=== PATIENT | female | born 1945 | race Caucasian/White ===

== ENCOUNTER → 2016-05-11 | Outpatient (CLI) | payer OTHER ==
--- NOTE | 2016-05-11 20:37 | DX ---
DEXA Bone Mineral Densitometry Clinical Indications: Postmenopausal, post hysterectomy, loss of height, follow-up osteoporosis Comparison: November 21, 2010 (osteoporosis in the forearm) Technique: Bone Mineral Densitometry (BMD) by Dual Energy X-Ray Absorptiometry (DEXA) was performed utilizing the Emergent Properties scanner. The lumbar spine was evaluated in the AP projection. The bilat eral hips and forearm were evaluated in the AP projection. Vertebral fracture assessment was also pe rformed. AP Lumbar Spine: The L1, L2, L3 and L4 vertebral bodies were evaluated. BMD: 1.017 gm/cm2 T-score: -1.4 SD Z-score: 0 SD No significant change. AP Left Hip: Total BMD: 0.768 gm/cm2 T-score: -1.9 SD Z-score: -0.6 SD No significant change since 2010. AP Right Hip: Total BMD: 0.732 gm/cm2 T-score: -2.2 SD Z-score: -0.8 SD No significant change since 2010 AP Left Forearm, 04/07: BMD: 0.555 gm/cm2 T-score: -3.7 SD Z-score: -1.7 SD No significant change since 2010 Vertebral Fracture Assessment: No significant fracture deformity. Degenerative spurring in the lumba r spine likely increases BMD. Conclusion: Considering the lowest measured site, the patient remains osteoporotic in the forearm. S adam the forearm is the lowest measured site, it would be worthwhile to exclude hyperparathyroidism. The ten year FRAX risk for any major osteoporotic fracture , which excludes the risk for a wrist frac ture, is 11.5% and for a hip fracture is 2.2%. To prevent osteoporosis and to promote the patient's bone density, the following recommendations shou ld be considered: 1. Pursue a regular regimen of weightbearing and muscle strengthening exercises in order to reduce t he risk of falls and fractures (as tolerated by the patient's general medical condition). 2. Ensure that daily dietary calcium uptake is maximized. 3. Consider checking the serum vitamin D level. Ensure that intake of vitamin D is 800 IU per day (f or ages 71 and older). 4. Consider follow-up DEXA scan in 3-4 years to reassess the rate of bone loss in this patient.
== END ==
LOC: FIMAGING 10:31
PROVIDERS: ATTEND Internal Medicine
DX: Z13.820 Encounter for screening for osteoporosis (principal); M81.0 Age-related osteoporosis without current pathological fracture; R29.890 Loss of height; Z90.710 Acquired absence of both cervix and uterus; Z78.0 Asymptomatic menopausal state

== ENCOUNTER 2016-09-17 08:50 | Inpatient (IN) | payer OTHER ==
--- NOTE | 2016-09-17 09:07 | EDPHY ---
H & P Source: Patient, Family, RN/MD Exam Limitations: No limitations HPI/ROS: CHIEF COMPLAINT: Fall, left hip HISTORY OF PRESENT ILLNESS: Patient was exercises this morning when she fell off of an exercise ball, landing on her left hip. This was on a hard surface at a gym. She felt a sudden onset of pain in the left hip. It was more severe when she attempted to move or get up. Too painful for her to ambulate or bear weight. Radiates into the thigh. No numbness or tingling. No pain in the distal extremity. No head or neck injury. No loss of conscious. No chest or back pain. No abdominal pain. Mild at rest. No other associated complaints or modifying factors. Last intake by mouth of solids was last night at 8:00 p.m.. She did drink some water at 8:00 a.m. this morning. No medical history. Only medication is Naprosyn for occasional low back pain. REVIEW OF SYSTEMS: Ten systems reviewed and are negative unless otherwise noted in the HPI PERTINENT MEDICAL HISTORY: Denies any significant medical history. SOCIAL HISTORY: Nonsmoker. Exercise irregular. EXAMINATION General Appearance: Alert, no distress Head: normocephalic, atraumatic Eyes: Pupils equal and round, no conjunctival pallor or injection ENT, Mouth: Mucous membranes moist Neck: Normal inspection, supple, non-tender Respiratory: Lungs are clear to auscultation. No wheezing, rhonchi or crackles. Cardiovascular: Regular rate and rhythm. No murmur. Pulses intact distally with symmetric DP and PT pulses at 2+. Gastrointestinal: Abdomen is soft and nontender Back: non-tender, no bony abnormalities Neurological: GCS 15. A&O, nonfocal. Strength is symmetric in both limbs and 5 /5 in her lower extremity. Difficult to test strength in the left lower extremity due to pain. Skin: Warm and dry, no rash Extremities: Left lower extremity is externally rotated. Unable to range the left hip due to pain. The left ankle range of motion is normal. Neurovascular intact distal to the left hip pain. Range of motion of both arms and the right leg fully intact. Psychiatric: Mood and affect normal DIFFERENTIAL DIAGNOSES: Including but not limited to intertrochanteric hip fracture, subcapital fracture , pelvic fracture, initial fracture,Femur fracture, contusion, hematoma MDM: 9:10 a.m. Mechanical fall with left hip pain. Patient is very well-appearing. She does have shortening external rotation of the left lower extremity. Too painful for her range the hip. Suspected this is a hip fracture. I have ordered preoperative labs and chest x-ray in preparation for this. She is in no acute distress with normal vital signs. 9:40 a.m. X-ray reveals subcapital fracture by my interpretation. I have paged orthopedics for consultation 9:55 a.m. I discussed the case with the on-call orthopedist Dr. Ty. I informed him of the patient's case and x-ray findings. He requested that the patient be admitted to the hospitalist. He also requested CBC, coagulation study, chest x- ray and EKG. He requested the hospitalist provide medical clearance to proceed with surgery and that she be kept NPO. No further recommendations or request. 10:10 a.m. I discussed the case with the hospitalist Dr. Mcbride. She has admitted the patient to Dr. Fontana. She is admitted in stable condition. She remains NPO for preoperative sooner SUPERVISION: Patient was evaluated in conjunction with the supervising physician. Please see their note for details. (Tom Willard) Constitutional: Initial Vital Signs Temperature (C) 36.6 C 09/17/16 09:08 Heart Rate 67 09/17/16 09:08 Respiratory Rate 18 09/17/16 09:08 Blood Pressure 146/86 H 09/17/16 09:08 O2 Sat (%) 98 09/17/16 09:08 O2 Delivery Mode Room Air Allergies/Adverse Reactions: clindamycin Allergy (Verified 09/17/16 09:20) nitrofurantoin [From Macrobid] Allergy (Verified 09/17/16 09:20) Medical Decision Making - Diagnostics Imaging Results: Imaging Impressions Chest X-Ray 09/17/16 09:03 Impression: 1. Clear lungs. No acute process. 2. Borderline enlarged heart. No failure or edema. Hip X-Ray 09/17/16 09:03 Impression: Acute angulated left femoral neck fracture. Other Provider: INDEPENDENT PHYSICIAN DOCUMENTATION I evaluated and participated in the management of the patient. I also evaluated the patient independently. My co-signature indicates that I have reviewed this chart and I agree with the findings and plan of care as documented. My personal H&P findings include: The patient presents to emergency department after a fall during exercise class. The patient presents to the ED without obvious pain, deformity and external rotation of her left hip. The patient was noted to be neurologically intact. The patient was taken for an x-ray which demonstrates a femoral neck fracture. Consultation was made with Dr. Domenico Ty from Orthopedic surgery. The patient will be admitted to the hospital in anticipation of ORIF this afternoon. The patient will be admitted to the hospital primarily by Dr. Amirah Fontana. (Rubén Villalobos) - Data Points Laboratory Results: Laboratory Results 09/17/16 09:06 09/17/16 09:06 09/17/16 09/17/16 09/17/16 09:06 09:06 09:06 WBC 4.52 10^3/uL 10^3/uL (3.80-9.50) RBC 5.00 10^6/uL 10^6/uL (4.18-5.33) Hgb 15.1 g/dL g/dL (12.6-16.3) Hct 43.6 % % (38.0-47.0) MCV 87.2 fL fL (81.5-99.8) MCH 30.2 pg pg (27.9-34.1) MCHC 34.6 g/dL g/dL (32.4-36.7) RDW 12.5 % % (11.5-15.2) Plt Count 190 10^3/uL 10^3/uL (150-400) PT 12.5 SEC SEC (12.0-15.0) INR 0.94 (0.83-1.16) APTT 32.0 SEC SEC (23.0-38.0) Sodium 135 mEq/L mEq/L (134-144) Potassium 4.4 mEq/L mEq/L (3.5-5.2) Chloride 103 mEq/L mEq/L (97-110) Carbon Dioxide 23 mEq/l mEq/l (22-31) Anion Gap 9 mEq/L mEq/L (8-16) BUN 14 mg/dL mg/dL (7-23) Creatinine 0.8 mg/dL mg/dL (0.6-1.0) Estimated GFR > 60 Glucose 87 mg/dL mg/dL (70-100) Calcium 9.7 mg/dL mg/dL (8.5-10.4) Medications Given: Discontinued Medications Hydromorphone HCl (Dilaudid) 0.5 mg IVP EDNOW ONE Stop: 09/17/16 10:13 Last Admin: 09/17/16 10:17 Dose: 0.5 mg Morphine Sulfate (Morphine) 4 mg IVP EDNOW ONE Stop: 09/17/16 09:01 Last Admin: 09/17/16 09:00 Dose: 4 mg Morphine Sulfate (Morphine) 2 mg IVP EDNOW ONE Stop: 09/17/16 09:36 Last Admin: 09/17/16 09:35 Dose: 2 mg Departure - Departure Disposition: [facility] Inpatient Acute Clinical Impression: Femoral neck fracture Qualifiers: Encounter type: initial encounter Fracture type: closed Laterality: left Qualified Code(s): S72.002A - Fracture of unspecified part of neck of left femur , initial encounter for closed fracture Condition: Good Instructions: Hip Fracture (ED) Referrals: Patient,NotPresent [Unknown] - As per Instructions
[2016-09-17 09:12] LABS: HEMATOCRIT 43.6 % (38.0-47.0); HEMOGLOBIN 15.1 g/dL (12.6-16.3); MEAN CELL HEMOGLOBIN 30.2 pg (27.9-34.1); MEAN CELL HEMOGLOBIN CONCENTR. 34.6 g/dL (32.4-36.7); MEAN CELL VOLUME 87.2 fL (81.5-99.8); RED CELL DISTRIBUTION WIDTH 12.5 % (11.5-15.2)
[2016-09-17 09:26] LABS: INR 0.94 (0.83-1.16); PROTIME(PATIENT) 12.5 SEC (12.0-15.0)
[2016-09-17 09:41] LABS: ANION GAP 9 mEq/L (8-16); CALCIUM 9.7 mg/dL (8.5-10.4); CARBON DIOXIDE 23 mEq/l (22-31); CHLORIDE 103 mEq/L (97-110); CREATININE 0.8 mg/dL (0.6-1.0); GLOMERULAR FILTRATION RATE > 60; GLUCOSE 87 mg/dL (70-100); POTASSIUM 4.4 mEq/L (3.5-5.2); SODIUM 135 mEq/L (134-144)
[2016-09-17] MEDS ORDERED: HYDROmorphONE/DILAUDID 1 MG/ML SYR ONE (10:12)
[2016-09-17] MEDS ORDERED: HYDROmorphONE/DILAUDID 1 MG/ML SYR IVP ONE (10:12)
--- NOTE | 2016-09-17 10:39 | CPEKG ---
Heart Rate: 62 RR Interval: 968 P-R Interval: 168 QRSD Interval: 84 QT Interval: 460 QTC Interval: 468 P [place]: 8 QRS [place]: 40 T Wave [place]: 40 EKG Severity - ABNORMAL ECG - EKG Impression: SINUS RHYTHM Electronically Signed By: Rubén Villalobos 17-Sep-2016 10:55:05
[2016-09-17] MEDS ORDERED: ONDANSETRON 4 MG/2 ML VIAL IVP PRN (11:37)
[2016-09-17] MEDS ORDERED: ONDANSETRON DISINTEGRATING 4 MG TAB PO PRN (11:37)
[2016-09-17] MEDS: NS W/ 20 KCl/L 1,000 ML IV SCH (12:20)
[2016-09-17] MEDS: HYDROmorphONE/DILAUDID 1 MG/ML SYR IVP PRN ×2 (12:20→22:08)
--- NOTE | 2016-09-17 12:23 | GHP ---
[f rep st] HISTORY AND PHYSICAL DATE OF ADMISSION: 09/17/2016 CHIEF COMPLAINT: Fall. HISTORY OF PRESENT ILLNESS: This is a 70-year-old female with no real past medical history. She do es have a history of osteopenia/osteoporosis though. She was on an exercise ball in exercise class and someone bumped into her and she fell on her left hip with a fracture. She really has no medical problems other than osteopenia/osteoporosis. She does have a history of asymptomatic gallstones. She denies any chest pain or angina. No shortness of breath. She is able to walk up a couple fligh ts of stairs with no problems. She is actually quite active. REVIEW OF SYSTEMS: A 10-point review of systems was obtained and was negative. PAST MEDICAL HISTORY: Osteoporosis. MEDICATIONS: Vitamins. SOCIAL HISTORY: No smoking or alcohol. Lives with her . FAMILY HISTORY: Mother had breast cancer. Father had coronary artery disease. PHYSICAL EXAM: VITAL SIGNS: Afebrile. Blood pressure is 126/68, heart rate 61, oxygen saturation 99% on room air. GENERAL: The patient is well-developed, no apparent distress. HEENT: Nonicteric sclerae. Extraocular movements intact. Moist mucous membranes. NECK: Supple. No thyromegaly. LUNGS: Good effort. Clear to auscultation bilaterally. CARDIOVASCULAR: Regular rate and rhythm. No murmurs, rubs or gallops. ABDOMEN: Positive bowel sounds. Soft, nontender, nondistended. No hepatosplenomegaly. EXTREMITIES: No clubbing, cyanosis or edema. Left leg is externally rotated a nd shortened. NEUROLOGIC: Alert and oriented x3. PSYCHIATRIC: Normal affect. LABS: CBC and chemistry are normal. EKG, personally reviewed and interpreted, is essentially normal. Although there are very small Q-wa ves inferiorly, I do not believe that these are significant. Chest x-ray, personally reviewed and interpreted, is normal. ASSESSMENT: 1. This is a 70-year-old female presenting with left hip fracture. Plan: Patient is at acceptable risk for surgery and needs no further cardiac risk stratification. There are no contraindications to surgery. 2. Osteoporosis. Looking back at her labs, it does look like her vitamin D is normal. PTH is at t he upper limit of normal, and bone scanning was possibly suggestive of hyperparathyroidism. We will defer further evaluation to her primary care doctor. /[id number]/MODL
[2016-09-17] MEDS: oxyCODONE IR 5 MG TAB PO PRN ×4 (14:31→22:09)
--- NOTE | 2016-09-17 17:39 | SOAPPROG ---
SOAP Progress Note Assessment/Plan: Assessment: 70yo healthy F with prior hi-activity level and mild OA sx remotely in the past, now with displaced L fem neck fx. Plan: Bedrest, NPO p MN, analgesics prn, pre-op labs. Med admit and clearance for surgery. Anticipate OR tomorrow with my partner, Jeff Mcrae MD, for RAMA. See consent and pre-op ortho consult per Dr Mcrae's notes. 09/17/16 17:39 Subjective: L hip pain s/p fall, unable to bear wt. Pre-injury status c/w hi-level, hiking , community ambulator, ex classes. Remote L hip occasional pain, previously under care of Dr Gusman who provided a steroid injxn 10+ years ago, resolving her pain. Denies any other injuries or complaints. Objective: Vital Signs Temp Pulse Resp BP Pulse Ox 36.4 C 77 16 120/56 L 92 09/17/16 16:55 09/17/16 16:55 09/17/16 16:55 09/17/16 16:55 09/17/16 16:55 09/16/16 09/17/16 09/18/16 05:59 05:59 05:59 Intake Total 387 Balance 387 PT 12.5 SEC (12.0-15.0) 09/17/16 09:06 INR 0.94 (0.83-1.16) 09/17/16 09:06 L hip TTP, no sig ER or shortening at this time. ROM def'd 2/2 pain. DNVI BLE' s w/o deficit. No calf TTP/edema, neg Rosanne's. XR - L transcervical femoral neck fracture with displacement. Mild sub- chondral sclerosis, preserved joint space. ICD10 Worksheet Patient Problems: Problems Problem Status Onset Femoral neck fracture Acute
--- NOTE | 2016-09-17 17:43 | GCON ---
[f rep st] CONSULTATION DATE OF CONSULTATION: 09/17/2016 ADDITIONAL DICTATED FOR: Dr. Mcrae. CHIEF COMPLAINT: Left hip pain. HISTORY OF PRESENT ILLNESS: The patient is a 70-year-old female who was brought to the emergency department complaining of left hip pain. Patient states she was in an exercise class, using an exercise ball, when another person in the class lost her balance, bumping into the patient and she ended up falling onto the left side. She states she had immediate pain in the left hip and was unable to get up or bear weight on the left lower extremity. Her pain is well-controlled now after IV Dilaudid. Patient denies any numbness or tingling. Prior to this injury she walked without any significant limitations, and was active with hiking and exercise classes. She had distant L hip pain that was treated with a steroid injection by Dr Gsuman 10+ years ago, resolving her pain. PAST MEDICAL HISTORY: Osteoporosis. PAST SURGICAL HISTORY: Hysterectomy, tonsillectomy, and adenoidectomy, and right breast lumpectomy x2. MEDICATIONS: Patient states she takes daily vitamins and Naprosyn as needed. ALLERGIES TO MEDICATIONS: Macrobid, clindamycin, lanolin and bacitracin. SOCIAL HISTORY: The patient is very active with hiking and exercising. She lives independently with her . REVIEW OF SYSTEMS: No other complaints after a 10-point review. PHYSICAL EXAMINATION: GENERAL: Patient is a healthy, well-appearing female. She is alert, active, in no acute distress. HEENT: Head is normocephalic, atraumatic. Nose, ears, and mouth appear normal. Eye motion is intact. NECK: Normal in appearance with midline trachea. LUNGS: Chest motion appears normal. Respirations are nonlabored. MUSCULOSKELETAL: Skin is intact over the left lower extremity without any ecchymosis, erythema, calor, or edema. She has slight tenderness to palpation on the anterolateral aspect of the left hip. Patient good range of motion of her ankles and toes bilaterally. 5/5 dorsiflexion and plantar flexion. Sensation is intact throughout. Palpable distal pulses with brisk capillary refill. Calves are soft and nontender with negative Homans. SKIN: Please see dictation above. Otherwise no other abrasions, erythema, or tattoos. NEUROLOGIC: Appears alert and oriented to person, place, and time. Speech is fluid and fluent. PSYCHIATRIC: Affect is normal. RADIOGRAPHIC DATA: X-rays from the emergency department are reviewed which show a displaced, transcervical left femoral neck fracture. Minimal OA change, including subchondral sclerosis, though joint space is preserved. ASSESSMENT AND PLAN: Displaced, closed left femoral neck fracture. Dr Ty discussed the patient's current activity and ambulatory status, and has explained that the best outcomes in regard to her fracture and functionality would be treatment with a total hip arthroplasty. Risks, benefits , and alternatives were discussed with the patient and her family. They agreed to proceed with surgery. Patient will remain on bedrest until surgery, position of comfort, NWB LLE. Surgery will likely be September 18, 2016. She will be n.p.o. after midnight tonight. Reg diet now. TEDs and SCDs. We will try p.o. pain management today while she can take things orally. Dr. Ty has provided the initial evaluation of the patient and the plan above. He has discussed with Dr. Mcrae, who will proceed with L total hip arthroplasty tomorrow. Patient understands and agrees to the treatment plan today and all of her questions have been answered. A consent form was completed with the patient today for a left total hip arthroplasty, PA supervision by Dr Mcrae for this surgery and consent form. /[id number]/MODL MTDD
[2016-09-18] MEDS: oxyCODONE IR 5 MG TAB PO PRN ×2 (04:13→07:50)
[2016-09-18] MEDS: NS W/ 20 KCl/L 1,000 ML IV SCH (04:16)
[2016-09-18] MEDS: ACETAMINOPHEN 325 MG TAB PO PRN (08:00)
[2016-09-18] MEDS: METHOCARBAMOL 750 MG TAB PO PRN ×3 (08:17→10:44)
[2016-09-18] MEDS ORDERED: ceFAZolin 2 GM/DEXTROSE 100 ML IV ONE (09:04)
--- NOTE | 2016-09-18 09:04 | SOAPPROG ---
SOAP Progress Note Assessment/Plan: Assessment/Plan: L femoral neck fracture - Plan for OR this afternoon for L RAMA with Dr. Mcrae - Continue pain management - Antibiotics on hold for the OR - Bed rest, position for comfort - Remain NPO 09/18/16 09:01 Subjective: Pt states she is doing okay. She slept well last night, but getting uncomfortable from not being able to get out of bed. Pt denies fever, chills, chest pain, SOB, abdominal pain, N/V/D, numbness, tingling, and calf pain. Objective: Vital Signs Temp Pulse Resp BP Pulse Ox 36.7 C 72 16 108/62 94 09/18/16 08:12 09/18/16 08:12 09/18/16 08:12 09/18/16 08:12 09/18/16 08:12 09/17/16 09/18/16 09/19/16 05:59 05:59 05:59 Intake Total 1483 Balance 1483 PT 12.5 SEC (12.0-15.0) 09/17/16 09:06 INR 0.94 (0.83-1.16) 09/17/16 09:06 Physical Exam - Physical Exam General Appearance: alert, mild distress Cardiac/Chest: normal peripheral pulses Skin: normal color, warm/dry Extremities: normal capillary refill, No pedal edema, No calf tenderness, No swelling, No Rosanne's sign Neuro/Psych: no motor/sensory deficits, alert, normal mood/affect, oriented x 3 ICD10 Worksheet Patient Problems: Problems Problem Status Onset Femoral neck fracture Acute
[2016-09-18] MEDS: HYDROmorphONE/DILAUDID 1 MG/ML SYR IVP PRN ×2 (10:33→12:53)
[2016-09-18] MEDS ORDERED: LACTULOSE 20 GM/30 ML UDCUP PO PRN (13:17)
[2016-09-18] MEDS ORDERED: BISACODYL 10 MG SUPP PR PRN (13:17)
[2016-09-18] MEDS ORDERED: MAGNESIUM HYDROXIDE 30 ML UDCUP PO PRN (13:17)
[2016-09-18] MEDS ORDERED: BUPIVACAINE/EPI 0.5% 30 ML SDV ONE ×2 (13:33→14:21)
[2016-09-18] MEDS ORDERED: POLYMYXIN B SULFATE 500,000 UNIT/10 ML SYR IRR ONE ×2 (13:33→14:22)
[2016-09-18] MEDS ORDERED: BACITRACIN 50,000 UNITS/10 ML SYR IRR ONE (14:22)
[2016-09-18] MEDS ORDERED: PROPOFOL 200 MG/20 ML VIAL ONE (14:55)
[2016-09-18] MEDS ORDERED: fentaNYL 100 MCG/2 ML INJ ONE ×2 (14:55→19:12)
[2016-09-18] MEDS ORDERED: CEFAZOLIN 2 GM/DEXTROSE/100 ML BAG IV ONE (14:58)
[2016-09-18] MEDS ORDERED: ceFAZolin 1 GM/5 ML SYR ONE (15:02)
[2016-09-18] MEDS ORDERED: LR 1,000 ML IV ONE (15:05)
[2016-09-18] MEDS ORDERED: LIDOCAINE 2% 5 ML SDV ONE (15:05)
[2016-09-18] MEDS ORDERED: ROCURONIUM 50 MG/5 ML VIAL ONE (15:05)
[2016-09-18] MEDS ORDERED: MIDAZOLAM 2 MG/2 ML VIAL IVP ONE (15:09)
[2016-09-18] MEDS ORDERED: DEXAMETHASONE 4 MG/ML VIAL ONE (15:09)
--- NOTE | 2016-09-18 15:25 | PDANEPAE ---
ANE History of Present Illness 70yo F Left Hip Endoprosthesis ANE Past Medical History - Cardiovascular History Hx Hypertension: No Hx Arrhythmias: No Hx Chest Pain: No - Pulmonary History Hx COPD: No Hx Asthma/Reactive Airway Disease: No Hx Recent Upper Respiratory Infection: No Hx Oxygen in Use at Home: No - Endocrine History Hx Diabetes: No - Chronic Pain History Chronic Pain: No ANE Review of Systems - Exercise capacity Exercise capacity: limited by disability - Systems Constitutional: Reports: no symptoms EENMT: Reports: no symptoms Cardiac: Reports: no symptoms Respiratory: Reports: no symptoms Gastrointestinal: Reports: no symptoms Muscolosketal: Reports: joint pain ANE Patient History - Allergies Allergies/Adverse Reactions: bacitracin Allergy (Verified 09/17/16 14:09) clindamycin Allergy (Verified 09/17/16 09:20) lanolin Allergy (Verified 09/17/16 14:10) nitrofurantoin [From Macrobid] Allergy (Verified 09/17/16 09:20) - Home Medications Home Medications: Herbals/Supplements -Info Only 1 ea PO DAILY 09/17/16 [Last Taken Unknown] Ibuprofen [Motrin (*)] 200 - 400 mg PO DAILY PRN 09/17/16 [Last Taken Unknown] Loratadine [Claritin] 10 mg PO DAILY PRN 09/17/16 [Last Taken Unknown] Naproxen Sodium [Naproxen Sodium Cr] 375 mg PO BID PRN 09/17/16 [Last Taken 1 Week Ago] - NPO status NPO Since - Liquids (Date): 09/18/16 NPO Since - Liquids (Time): 06:00 NPO Since - Solids (Date): 09/17/16 NPO Since - Solids (Time): 23:00 - Smoking Hx Smoking Status: Former smoker ANE Labs/Vital Signs - Labs Result Diagrams: 09/17/16 09:06 09/17/16 09:06 - Vital Signs Blood Pressure: 106/61 Heart Rate: 70 Respiratory Rate: 16 O2 Sat (%): 97 Height: 165.1 cm Weight: 72.575 kg ANE Physical Exam - Airway Mallampati Score: Class 2 Mouth exam: normal dental/mouth exam - Pulmonary Pulmonary: no respiratory distress, clear to auscultation - Cardiovascular Cardiovascular: regular rate and rhythym - ASA Status ASA Status: II ANE Anesthesia Plan Anesthesia Plan: general endotracheal anesthesia
[2016-09-18] MEDS ORDERED: NALOXONE HCL 0.4 MG/ML INJ IVP PRN (15:26)
[2016-09-18] MEDS ORDERED: LR 500 ML IV PRN (15:26)
[2016-09-18] MEDS ORDERED: OXYCODONE/APAP 5/325 TAB PO PRN (15:26)
[2016-09-18] MEDS ORDERED: ALBUTEROL 3 ML DEYVIAL IH PRN (15:26)
[2016-09-18] MEDS ORDERED: HYDROCODONE/APAP 5/325 TAB PO PRN (15:26)
[2016-09-18] MEDS ORDERED: HYDROmorphONE/DILAUDID 1 MG/ML SYR IVP PRN (15:26)
[2016-09-18] MEDS ORDERED: fentaNYL 100 MCG/2 ML INJ IVP PRN (15:30)
--- NOTE | 2016-09-18 15:33 | HOSPPROG ---
Hospitalist Progress Note Assessment/Plan: Patient is doing well. Is complaining of some low back pain but otherwise no new complaints. Patient is able to go to surgery without any further testing. I discussed the case with Orthopedic surgery and they will take over care since she does not have any medical problems Objective: Vital Signs Temp Pulse Resp BP Pulse Ox 36.9 C 70 16 106/61 97 09/18/16 14:51 09/18/16 15:26 09/18/16 15:26 09/18/16 15:26 09/18/16 15:26 09/17/16 09/18/16 09/19/16 05:59 05:59 05:59 Intake Total 1483 Output Total 3500 Balance 1483 -3500 PT 12.5 SEC (12.0-15.0) 09/17/16 09:06 INR 0.94 (0.83-1.16) 09/17/16 09:06 ICD10 Worksheet Patient Problems: Problems Problem Status Onset Femoral neck fracture Acute
[2016-09-18] MEDS ORDERED: EPINEPHRINE IU ONE (15:49)
[2016-09-18] MEDS ORDERED: KETOROLAC TROMETHAMINE IU ONE (15:49)
[2016-09-18] MEDS ORDERED: ROPIVACAINE IU ONE (15:49)
[2016-09-18] MEDS ORDERED: [UNRECOGNIZED DRUG - OTHER] IU ONE (15:49)
[2016-09-18] MEDS ORDERED: HYDROmorphONE/DILAUDID 2 MG/ML INJ ONE (17:11)
[2016-09-18] MEDS ORDERED: ONDANSETRON 4 MG/2 ML VIAL ONE (17:59)
[2016-09-18] MEDS ORDERED: DIPHENOXYLATE/ATROPINE LOMOTIL 1 TAB PO PRN (18:55)
[2016-09-18] MEDS ORDERED: TEMAZEPAM 15 MG CAP PO PRN (18:55)
[2016-09-18] MEDS ORDERED: PROMETHAZINE HCL 25 MG/ML INJ IVP PRN (18:55)
[2016-09-18] MEDS ORDERED: PHARMACY PAIN CONSULT 1 EA MISC PRN (18:55)
[2016-09-18] MEDS ORDERED: diphenhydrAMINE 25 MG CAP PO PRN (18:55)
[2016-09-18] MEDS ORDERED: METOCLOPRAMIDE 10 MG/2 ML VIAL IVP PRN (18:55)
--- NOTE | 2016-09-18 18:58 | POSTANESTH ---
Post Anesthetic Evaluation Cardiovascular Status: Normal, Stable Respiratory Status: Normal, Stable Level of Consciousness/Mental Status: Can Participate in Eval Pain Control: Adequate, Prn Tx Ordered Nausea/Vomiting Control: Adequate, Prn Tx Ordered Complications Possibly Related to Anesthesia: None Noted
--- NOTE | 2016-09-18 19:09 | POSTOPPROG ---
Post Op Note Date of Operation: 09/18/16 Surgeon: Elio Mcrae Bearing Machine Operator: Sharee Jj PA-C Anesthesiologist: Dr. Gomes Anesthesia: GET(General Endotracheal) Pre-op Diagnosis: L femoral neck fracture Post-op Diagnosis: L femoral neck fracture Procedure: L RAMA Findings: See full dictation Inf/Abcess present in the surg proc area at time of surgery?: No Depth: Organ Space EBL: 100-500 Complications: None Drains: Ever Santos
[2016-09-18] MEDS ORDERED: WARFARIN SODIUM 5 MG TAB PO ONE (19:15)
[2016-09-18] MEDS: fentaNYL 100 MCG/2 ML INJ IVP PRN ×2 (19:17→19:25)
--- NOTE | 2016-09-18 19:27 | GOP ---
[f rep st] OPERATIVE REPORT DATE OF OPERATION: 09/17/2016 SURGEON: Elio Mcrae MD SORTING GRAPPLE OPERATOR: Sharee Jj PA-C ANESTHESIA: General. PREOPERATIVE DIAGNOSIS: 1. Left femoral neck fracture. 2. Osteoarthritis. POSTOPERATIVE DIAGNOSIS: 1. Left femoral neck fracture. 2. Osteoarthritis. 3. Gluteus dannielle tendon avulsion of the greater trochanter. PROCEDURE PERFORMED: FINDINGS: DESCRIPTION OF PROCEDURE: The patient was taken to the operating room, administered general anesthe luther, placed in the supine position. The left hip and lower extremity were prepped and draped in nor mal sterile fashion. A posterolateral incision was made through dermal subcutaneous tissues. Sharp dissection was performed down to the tensor fascia anne. In the process, we came across extensive bursal tissue that was thick and disorganized. This was incised. The tensor fascia anne was incise d distally and extended up over the greater trochanter into the gluteal fascia. The hip abductor me chanism was found to be avulsed off the greater trochanter. The hip was internally rotated, bringin g the external rotators under tension. A retractor was placed underneath the gluteus medius and min imus tendons. The external rotators were then taken down along with the piriformis and posterior hi p capsule with cautery. The fracture segment was visualized. Bone fragments were removed. The fem oral neck cut was freshened up with the saw blade about 0.75 cm above the lesser trochanter. This w afer of bone was removed. The head segment was then levered out using a corkscrew. The acetabulum was found to be moderately worn. We elected to perform a total hip. The cotyloid notch was cleared . The labral tissue was excised. Reaming began with a size 47 and extended up to a size 54. A 54 cup was put into place and impacted. We initially did the trial. We then felt like we got better p urchase by going up a size. The reaming then commenced up to a size 56. The trial fit nicely. The 56 shell fit well. We got good fit and therefore elected not to use any screws. A trial liner was put in position. We then addressed the femur. The box osteotome was used to remove bone laterally . Starting reamer was placed down through the femoral canal. Reaming commenced with a size 5 and e xtended up to a size 9. Broaching began with a size 6 and extended up to a size 9. A 9 trial was l eft in place. We trialed initially with a -5 and then went up to 0 with a larger offset. This seem ed to fit more appropriately and equalize the leg lengths. The real implants were open. The real f emur was impacted into position. This was a size 9, 35 mm C-Taper, 127 degree neck angle hip stem. The anatomic C-Taper femoral head was then placed on the trunnion and impacted into position. It w as a size 36+ 0 C-Taper head. The hip was then relocated into the real acetabular liner that was a standard 0 degree polyethylene insert, size 36 mm E. The hip was put through range of motion, felt to be stable. We then reapproximated the hip abductors down to the greater trochanter. These were severely torn, but not likely from the recent fall, as most of the tissue appeared to be mature and nonhemorrhagic. This was performed with a series of #2 Mersilene sutures. The hip capsule and exte rnal rotators were repaired through drill holes in the greater trochanter with #2 Mersilene suture. The piriformis was reapproximated with #2 Mersilene suture. The IT band was then reapproximated wi th a #1 Vicryl suture in figure-eight fashion, followed by closure of subcutaneous tissue with 2-0 V icryl, followed by closure of the dermis with jermain. A sterile compression dressing was applied. The patient tolerated procedure well, was transferred back to recovery in stable condition. A hip abduction pillow was utilized postoperatively. She has been placed into TEODORO hose and pneumatic comp ression. OPERATIVE PROCEDURE: 1. Left total hip arthroplasty. 2. Repair of hip abductor tendons (gluteus dannielle). COMPLICATIONS: None. /[id number]/MODL
[2016-09-18] MEDS: LR 1,000 ML IV SCH (20:38)
[2016-09-18 20:58] LABS: INR 1.14 (0.83-1.16); PROTIME(PATIENT) 14.5 SEC (12.0-15.0)
[2016-09-18] MEDS ORDERED: WARFARIN SODIUM 5 MG TAB ONE (21:45)
[2016-09-18] MEDS: ceFAZolin 2 GM/DEXTROSE 100 ML IV SCH (21:50)
[2016-09-18] MEDS: FAMOTIDINE 20 MG TAB PO SCH (21:51)
[2016-09-18] MEDS: SENNOSIDES/DOCUSATE SODIUM TAB PO SCH (21:52)
[2016-09-19] MEDS: oxyCODONE IR 5 MG TAB PO PRN ×4 (02:08→17:31)
[2016-09-19 04:44] LABS: HEMATOCRIT 30.6 % (38.0-47.0); HEMOGLOBIN 10.2 g/dL (12.6-16.3)
[2016-09-19] MEDS: ceFAZolin 2 GM/DEXTROSE 100 ML IV SCH (05:40)
[2016-09-19] MEDS: LR 1,000 ML IV SCH (05:40)
[2016-09-19] MEDS: SENNOSIDES/DOCUSATE SODIUM TAB PO SCH ×2 (09:51→20:40)
[2016-09-19] MEDS: POLYETHYLENE GLYCOL 3350 17 GM PKT PO PRN (09:51)
[2016-09-19] MEDS: ACETAMINOPHEN 325 MG TAB PO PRN ×2 (09:52→17:30)
[2016-09-19] MEDS: METHOCARBAMOL 750 MG TAB PO PRN ×2 (09:52→17:31)
[2016-09-19] MEDS: FAMOTIDINE 20 MG TAB PO SCH ×2 (09:52→20:39)
--- NOTE | 2016-09-19 13:50 | SOAPPROG ---
SOAP Progress Note Assessment/Plan: Assessment: 70yo healthy F POD 1 s/p L RAMA and repair of chronic appearing abductor tendon defect by my partner Sb Mcrae MD for fem neck fx. Plan: Cont post-op plan per Dr Mcrae's standard protocol. - PHPs LLE with abductor precautions. - Complete proph IV abx - Cont TEDs/SCDs and VTE chemoproph as ordered - PT/OT for mob and ADLs, training - Castillo still in place, pt refused d/c today, will re-attempt in AM - Dsg change and likely drain d/c tomorrow on my rounds (please have dsgs at bedside) - Dispo pending 09/19/16 13:53 Subjective: Pain well controlled, but feels weak around her hip. OOBTC with PT/OT earlier today. No ELLE or other c/os. Objective: Vital Signs Temp Pulse Resp BP Pulse Ox 37.1 C 78 16 91/54 L 94 09/19/16 11:48 09/19/16 11:48 09/19/16 11:48 09/19/16 11:48 09/19/16 11:48 Laboratory Results 09/19/16 04:28 09/18/16 09/19/16 09/20/16 05:59 05:59 05:59 Intake Total 1483 1850 Output Total 4720 Balance 1483 -2870 PT 14.5 SEC (12.0-15.0) 09/18/16 20:40 INR 1.14 (0.83-1.16) 09/18/16 20:40 R thigh soft, w/o sig e/e/e/c. Dsgs c/d/i. DNVI BLEs. Abd pillow and drain in place. BLE calves NT, neg Rosanne's. Drain - 50 in bulb + 70 recorded = 120cc since surgery. ICD10 Worksheet Patient Problems: Problems Problem Status Onset Femoral neck fracture Acute
[2016-09-19] MEDS ORDERED: WARFARIN SODIUM 5 MG TAB PO ONE (16:30)
[2016-09-20] MEDS: ACETAMINOPHEN 325 MG TAB PO PRN ×4 (00:02→17:07)
[2016-09-20] MEDS: oxyCODONE IR 5 MG TAB PO PRN ×5 (00:03→21:26)
[2016-09-20 05:15] LABS: HEMATOCRIT 27.2 % (38.0-47.0)
[2016-09-20 05:46] LABS: INR 1.15 (0.83-1.16); PROTIME(PATIENT) 14.6 SEC (12.0-15.0)
[2016-09-20] MEDS: POLYETHYLENE GLYCOL 3350 17 GM PKT PO PRN (08:54)
[2016-09-20] MEDS: METHOCARBAMOL 750 MG TAB PO PRN (08:55)
[2016-09-20] MEDS: SENNOSIDES/DOCUSATE SODIUM TAB PO SCH ×2 (08:55→21:23)
[2016-09-20] MEDS: FAMOTIDINE 20 MG TAB PO SCH ×2 (08:55→21:23)
--- NOTE | 2016-09-20 12:44 | SOAPPROG ---
SOAP Progress Note Assessment/Plan: Assessment: 70yo healthy F POD 2 s/p L RAMA and repair of chronic appearing abductor tendon defect by my partner Sb Mcrae MD for fem neck fx. Plan: Cont post-op plan per Dr Mcrae's standard protocol. - PHPs LLE with abductor precautions. - Cont TEDs/SCDs and VTE chemoproph as ordered - PT/OT for mob and ADLs, training - Dsg changed and drain d/c'd by me today - Dispo pending, seems likely she will need SNF stay 09/20/16 12:43 Subjective: Pain well controlled, no N/T. Has been OOBTC with PT/RNs. Castillo d/c'd this AM with subsequent urination and BM. Overall doing well per RN. Objective: Vital Signs Temp Pulse Resp BP Pulse Ox 37.1 C 91 18 105/57 L 90 L 09/20/16 12:00 09/20/16 12:00 09/20/16 12:00 09/20/16 12:00 09/20/16 12:00 Laboratory Results 09/20/16 04:40 09/19/16 09/20/16 09/21/16 05:59 05:59 05:59 Intake Total 1850 Output Total 4720 2270 450 Balance -2870 -2270 -450 PT 14.6 SEC (12.0-15.0) 09/20/16 04:40 INR 1.15 (0.83-1.16) 09/20/16 04:40 L hip wound clean/dry, jermain intact, no oozing, drain site and inc benigh with min ecchy/edema. Thigh soft. DNVI BLE's w/ neg Rosanne's, no calf TTP or edema. ICD10 Worksheet Patient Problems: Problems Problem Status Onset Femoral neck fracture Acute
[2016-09-20] MEDS ORDERED: WARFARIN SODIUM 7.5 MG TAB PO ONE (16:00)
[2016-09-20 20:20] LABS: COLOR PALE YELLOW; LEUKOCYTE ESTERASE,URINE NEGATIVE (NEGATIVE); NITRITE,URINE NEGATIVE (NEGATIVE)
[2016-09-21 05:05] LABS: INR 1.34 (0.83-1.16); PROTIME(PATIENT) 16.6 SEC (12.0-15.0)
[2016-09-21] MEDS: METHOCARBAMOL 750 MG TAB PO PRN ×2 (05:33→12:39)
[2016-09-21] MEDS: oxyCODONE IR 5 MG TAB PO PRN ×2 (05:33→12:38)
--- NOTE | 2016-09-21 07:19 | SOAPPROG ---
SOAP Progress Note Assessment/Plan: Assessment/Plan: - Cont PT/OT, posterior hip precautions, WBAT. Rx for outpatient PT provided in pt's chart. - Cont TEDs/SCDs for VTE mechanical prophylaxis - Cont warfarin for VTE chemoproph as ordered, pt will need 4wks post op anticoagulation on this medication. Rx for outpatient lab draws has been provided in pt's chart. - Cont current PO pain management - Pt will require a hospital bed at home for frequent changes in body positioning for swelling relief and comfortable positioning, as well as to avoid skin breakdown. This will require positioning that is not accomplished with an ordinary bed. Pt will also require a bedside commode upon d/c as she has significant difficulty ambulating at this time and will be unable to ambulate to existing facilities. - OK to d/c from ortho standpoint, would recommend SNF over 24 hr home care per PT recommendation 09/21/16 10:44 Subjective: Pt seen at bedside today. No complaints of significant pain at this time. States she is tolerating her diet and medications well. She is anxious to d/c, and has voiced a desire to d/c to home so she can see family who are returning for a visit. She has no additional concerns or complaints at this time. Objective: Vital Signs Temp Pulse Resp BP Pulse Ox 36.9 C 75 19 112/66 96 09/21/16 03:11 09/21/16 03:11 09/21/16 03:11 09/21/16 03:11 09/21/16 03:11 Laboratory Results 09/20/16 04:40 09/20/16 09/21/16 09/22/16 05:59 05:59 05:59 Intake Total 400 Output Total 2270 2100 Balance -2270 -1700 PT 16.6 SEC (12.0-15.0) H 09/21/16 04:34 INR 1.34 (0.83-1.16) H 09/21/16 04:34 Pt seen at bedside and examined by Dr. Mcrae. VSS, A&Ox3, pleasant and cooperative with exam. Exam of L hip reveals intact dressings, clean/dry, jermain intact, no significant surrounding erythema, calor, discharge or induration. Thigh soft. Post calves are NTTP, no palpable vascular cords, neg Rosanne's bilat. Pt moves leg well. DNVI BLE. ICD10 Worksheet Patient Problems: Problems Problem Status Onset Femoral neck fracture Acute
[2016-09-21 07:40] VITALS: BP 100/69; PULSE 103; RESP 16; TEMP 98.4
[2016-09-21] MEDS: FAMOTIDINE 20 MG TAB PO SCH (08:42)
[2016-09-21] MEDS: SENNOSIDES/DOCUSATE SODIUM TAB PO SCH (08:42)
[2016-09-21 08:43] VITALS: O2SAT 92
[2016-09-21] MEDS: ACETAMINOPHEN 325 MG TAB PO PRN (12:39)
--- NOTE | 2016-09-21 12:56 | PDIAF ---
- Diagnosis Diagnosis: Left femoral neck fracture Code Status: Full Code - Medication Management Discharge Medications: Medications to Continue on Transfer Loratadine [Claritin] 10 mg PO DAILY PRN 09/17/16 [Last Taken Unknown] Acetaminophen [Tylenol 325mg (*)] 650 mg PO Q4HRS PRN #0 tab 09/21/16 [Last Taken Unknown] Methocarbamol [Robaxin 750 mg (*)] 750 mg PO TID PRN #30 tab 09/21/16 [Last Taken Unknown] Warfarin Sodium [Coumadin 7.5MG (*)] 7.5 mg PO ONCE@1600 #50 tab 09/21/16 [Last Taken Unknown] oxyCODONE IR [Oxycodone Ir (*)] 5 - 10 mg PO Q4HRS PRN #40 tab 09/21/16 [Last Taken Unknown] Care Home Antibiotics: None Discharge Medications: Refer to the Discharge Home Medication list for PRN reason. PICC Care - Routine: N/A - Orders Services needed: Home Care, Physical Therapy Home Care Face to Face: I certify that this patient was under my care and that I had the required [id number] encounter meeting the encounter requirements on the discharge day. My findings support the fact that the patient is homebound as defined in CMS Chapter 7 Medicare Benefits Manual 30.1.1, The condition of the patient is such that there exists a normal inability to leave home and consequently, leaving home would require a considerable and taxing effort. Isolation Type: None Oxygen: None Diet Recommendation: no restrictions on diet Diet Texture: Regular Texture Diet Castillo: No Teodoro Stockings Discontinue Date: Pt is encouraged to wear her TEODORO stockings until follow up w/ Dr. Mcrae Wound Care Instructions: Pt is instructed to keep her incision site clean and dry at all times, and to cover for bathing purposes. She is to avoid soaking until 4 days after her jermain are removed. Please see discharge instructions for additional care. Sutures/Minden Site: Minden will be removed in the office by Dr. Mcrae 10-14 days postoperatively. The patient is encouraged to contact the office as soon as possible to set up this appointment. Activity/Weight Bearing Restrictions: WBAT, posterior hip precautions. Please see discharge instructions for details. - Labs/Radiology PT/INR Date: 09/23/16 (Pt should have at least biweekly PT/INT testing, beginning either 09/23/2016 or 09/24/2016 depending on discharge date, and has an appropriate prescriptions for outpatient lab draws. These results should be relayed to [facility], attn: Trevon Ireland, for dosing instructions. Please feel free to contact the office with any questions or concerns.) - Follow Up Care Current Providers and Referrals: Elio Mcrae MD [Medical Doctor] - (Pt will follow up w/ Dr. Mcrae 10-14 days postoperatively, or sooner with any additional concerns or complaints. She is encouraged to contact the office as soon as possible to schedule this appointment.)
[2016-09-21] MEDS ORDERED: WARFARIN SODIUM 7.5 MG TAB PO ONE (16:00)
== END 2016-09-21 17:15 | disposition home health service (06) | DRG 470 ==
LOC: EDUNIT# → F3N 11:17
PROVIDERS: ADMIT Internal Medicine; ATTEND Orthopaedic Surgery Sports Medicine
PROC: 0SRB02Z Replacement of Left Hip Joint with Metal on Polyethylene Synthetic Substitute, Open Approach (ICD-10-PCS; principal; 2016-09-18 15:00)
PROC: 0LQK0ZZ Repair Left Hip Tendon, Open Approach (ICD-10-PCS; principal; 2016-09-18 15:00)
DX: S72.032A Displaced midcervical fracture of left femur, initial encounter for closed fracture (principal); S76.012A Strain of muscle, fascia and tendon of left hip, initial encounter; M81.0 Age-related osteoporosis without current pathological fracture; W17.89XA Other fall from one level to another, initial encounter; Y93.B9 Activity, other involving muscle strengthening exercises; Y92.39 Other specified sports and athletic area as the place of occurrence of the external cause
CPT/HCPCS: 96374; 97116-GP; 97161-GP; 97165-GO; 97530-GP; 97535-GO; G8978-GP-CL; G8979-GP-CJ; G8980-GP-CI; G8987-GO-CM; G8988-GO-CK; J0171; J0690; J1100; J1170; J1885; J2250; J2405; J2704; J2795; J3010

== ENCOUNTER → 2017-01-04 | Outpatient (CLI) | payer OTHER ==
[~2017-01-04] MED LIST: GADOBUTROL 10 ML VIAL IVP ONE
== END ==
LOC: FIMAGING 06:56
PROVIDERS: ATTEND Physician Assistant Medical
DX: R42 Dizziness and giddiness (principal)
CPT/HCPCS: 70553; A9585

== ENCOUNTER → 2017-01-15 | Outpatient (CLI) | payer OTHER | LOC: FIMAGING 10:45 | PROVIDERS: ATTEND Internal Medicine | DX: Z12.31 Encounter for screening mammogram for malignant neoplasm of breast (principal) | CPT/HCPCS: G0202 ==

== ENCOUNTER → 2018-01-19 | Outpatient (CLI) | payer OTHER | LOC: FIMAGING 11:37 | PROVIDERS: ATTEND Internal Medicine | DX: Z12.31 Encounter for screening mammogram for malignant neoplasm of breast (principal); Z80.3 Family history of malignant neoplasm of breast ==

== ENCOUNTER → 2018-02-01 | Outpatient (CLI) | payer OTHER | LOC: BMCIMAGING 09:30 | PROVIDERS: ATTEND Internal Medicine | DX: M19.041 Primary osteoarthritis, right hand (principal); M19.042 Primary osteoarthritis, left hand ==

== ENCOUNTER → 2018-06-28 | Outpatient (CLI) | payer OTHER | LOC: FIMAGING 10:01 | PROVIDERS: ATTEND Internal Medicine Endocrinology, Diabetes & Metabolism | DX: M81.0 Age-related osteoporosis without current pathological fracture (principal); Z78.0 Asymptomatic menopausal state ==

== ENCOUNTER → 2018-09-09 | Outpatient (CLI) | payer OTHER | LOC: FIMAGING 09:13 ==